=== PATIENT | female | born 2000 | race Caucasian/White ===

== ENCOUNTER 2019-03-01 18:19 | Emergency (ER) | payer SELFPAY ==
--- NOTE | 2019-03-01 18:58 | EDM.PDOC ---
ED HPI GENERAL MEDICAL PROBLEM - General Chief Complaint: Abdominal Pain Stated Complaint: ABDOMINAL PAIN Time Seen by Provider: 03/01/19 18:58 - History of Present Illness INITIAL COMMENTS - FREE TEXT/NARRATIVE: 18-year-old female presents emergency room with abdominal pain. This pain has been going on for a while progressively getting worse she was seen here sometime back and is doing about the same at this point. Apparently the patient had a pelvic ultrasound done over [facility] and according to the patient it showed a ruptured ovarian cyst. The patient is getting around no nausea vomiting diarrhea constipation. She was last seen here a month ago. He just has some discomfort with this no fevers or chills. Right Lower Abdomen Pain Score (Numeric/FACES): 10 - Related Data Allergies Allergy/AdvReac Type Severity Reaction Status Date / Time camphor* [From Vicks Vaporub] Allergy Hives Verified 03/01/19 18:47 [email or web address] Allergy Hives Verified 03/01/19 18:47 [From Vicks Vaporub] menthol [From Vicks Vaporub] Allergy Hives Verified 03/01/19 18:47 petrolatum,white Allergy Hives Verified 03/01/19 18:47 [From Vicks Vaporub] turpentine oil Allergy Hives Verified 03/01/19 18:47 [From Vicks Vaporub] metal Allergy Swelling Uncoded 03/01/19 18:47 Home Meds: Home Meds Escitalopram [Lexapro] 20 mg PO DAILY 03/01/19 [History] Nitrofurantoin Monohyd/M-Cryst [Macrobid 100 mg Capsule] 100 mg PO Q12H #14 capsule 03/01/19 [Rx] Past Medical History HEENT History: Reports: Impaired Vision Psychiatric History: Reports: Anxiety, Depression Other Psychiatric History: can't afford her medications Endocrine/Metabolic History: Reports: Obesity/BMI 30+ - Past Surgical History Female Surgical History: Reports: Other (See Below) Other Female Surgeries/Procedures: ruptured cyst Social & Family History - Family History Oncologic: Reports: Colon, Skin - Tobacco Use Smoking Status *Q: Never Smoker Second Hand Smoke Exposure: No - Caffeine Use Caffeine Use: Reports: Coffee, Energy Drinks, Soda, Tea - Recreational Drug Use Recreational Drug Use: No - Living Situation & Occupation Living situation: Reports: Single, with Significant Other (Emmanuel, his brother) Occupation: Employed ([employer]) ED ROS GENERAL - Review of Systems Review Of Systems: See Below Constitutional: Reports: No Symptoms HEENT: Reports: No Symptoms Respiratory: Reports: No Symptoms Cardiovascular: Reports: No Symptoms Endocrine: Reports: No Symptoms GI/Abdominal: Reports: Abdominal Pain (Lower abdominal discomfort). Denies: Constipation, Diarrhea, Nausea, Vomiting : Reports: No Symptoms, Discharge, Dysuria, Flank Pain, Frequency Neurological: Reports: No Symptoms. Denies: Confusion, Dizziness, Headache ED EXAM, GI/ABD - Physical Exam Exam: See Below Exam Limited By: No Limitations General Appearance: Alert, No Apparent Distress Cardiovascular: Normal Peripheral Pulses, Regular Rate, Rhythm, No Edema, No Gallop, No JVD, No Murmur, No Rub GI/Abdominal Exam: Normal Bowel Sounds, Soft, No Organomegaly, No Distention, No Abnormal Bruit, No Mass, Pelvis Stable, Other (She has some right-sided lower pelvic discomfort no rigidity rebound or guarding) Back Exam: Normal Inspection, CVA Tenderness (R). No: CVA Tenderness (L) Extremities: Normal Inspection, No Pedal Edema Neurological: Alert, Oriented, Normal Cognition Course - Vital Signs Last Recorded V/S: Last Vital Signs Temp 36.2 C 03/01/19 18:43 Pulse 101 H 03/01/19 18:43 Resp 20 03/01/19 18:43 BP 97/73 03/01/19 18:43 Pulse Ox 100 03/01/19 18:43 - Orders/Labs/Meds Orders: Active Orders 24 hr Category Date Time Status CULTURE URINE [RM] Stat Lab 03/01/19 20:50 Received Labs: Laboratory Tests 03/01/19 03/01/19 03/01/19 Range/Units 19:31 19:31 20:50 WBC 8.16 (3.98-10.04) K/mm3 RBC 4.43 (3.98-5.22) M/mm3 Hgb 13.1 (11.2-15.7) gm/L Hct 38.5 (34.1-44.9) % MCV 86.9 (79.4-94.8) fl MCH 29.6 (25.6-32.2) pg MCHC 34.0 (32.2-35.5) g/dl RDW Std Deviation 40.8 (36.4-46.3) fL Plt Count 294 (182-369) K/mm3 MPV 9.5 (9.4-12.3) fl Neutrophils % (Manual) 67 H (40-60) % Band Neutrophils % 0 (0-10) % Lymphocytes % (Manual) 29 (20-40) % Atypical Lymphs % 0 % Monocytes % (Manual) 3 (2-10) % Eosinophils % (Manual) 1 (0.7-5.8) % Basophils % (Manual) 0 L (0.1-1.2) Platelet Estimate Adequate RBC Morph Comment Normal Sodium 138 (136-145) mEq/L Potassium 4.0 (3.5-5.1) mEq/L Chloride 103 (98-107) mEq/L Carbon Dioxide 27 (21-32) mEq/L Anion Gap 12.0 (5-15) BUN 10 (7-18) mg/dL Creatinine 1.0 (0.55-1.02) mg/dL Est Cr Clr Drug Dosing 100.30 mL/min Estimated GFR (MDRD) > 60 (>60) mL/min BUN/Creatinine Ratio 10.0 L (14-18) Glucose 95 (74-106) mg/dL Calcium 9.1 (8.5-10.1) mg/dL Total Bilirubin 0.4 (0.2-1.0) mg/dL AST 19 (15-37) U/L ALT 37 (14-59) U/L Alkaline Phosphatase 53 (46-116) U/L Total Protein 7.4 (6.4-8.2) g/dl Albumin 3.8 (3.4-5.0) g/dl Globulin 3.6 gm/dL Albumin/Globulin Ratio 1.1 (1-2) Urine Color Yellow (Yellow) Urine Appearance Slt cloudy H (Clear) Urine pH 6.0 (5.0-8.0) Ur Specific [place] 1.020 (1.005-1.030) Urine Protein Negative (Negative) Urine Glucose (UA) Negative (Negative) Urine Ketones Negative (Negative) Urine Occult Blood Negative (Negative) Urine Nitrite Negative (Negative) Urine Bilirubin Negative (Negative) Urine Urobilinogen 0.2 (0.2-1.0) Ur Leukocyte Esterase 2+ H (Negative) Urine RBC 0-5 (0-5) /hpf Urine WBC 75-100 H (0-5) /hpf Ur Squamous Epith Cells 5-10 H (0-5) /hpf Urine Bacteria Moderate H (FEW) /hpf Urine Mucus Few (FEW) /hpf Urine HCG, Qual (NEGATIVE) 03/01/19 Range/Units 21:01 WBC (3.98-10.04) K/mm3 RBC (3.98-5.22) M/mm3 Hgb (11.2-15.7) gm/L Hct (34.1-44.9) % MCV (79.4-94.8) fl MCH (25.6-32.2) pg MCHC (32.2-35.5) g/dl RDW Std Deviation (36.4-46.3) fL Plt Count (182-369) K/mm3 MPV (9.4-12.3) fl Neutrophils % (Manual) (40-60) % Band Neutrophils % (0-10) % Lymphocytes % (Manual) (20-40) % Atypical Lymphs % % Monocytes % (Manual) (2-10) % Eosinophils % (Manual) (0.7-5.8) % Basophils % (Manual) (0.1-1.2) Platelet Estimate RBC Morph Comment Sodium (136-145) mEq/L Potassium (3.5-5.1) mEq/L Chloride (98-107) mEq/L Carbon Dioxide (21-32) mEq/L Anion Gap (5-15) BUN (7-18) mg/dL Creatinine (0.55-1.02) mg/dL Est Cr Clr Drug Dosing mL/min Estimated GFR (MDRD) (>60) mL/min BUN/Creatinine Ratio (14-18) Glucose (74-106) mg/dL Calcium (8.5-10.1) mg/dL Total Bilirubin (0.2-1.0) mg/dL AST (15-37) U/L ALT (14-59) U/L Alkaline Phosphatase (46-116) U/L Total Protein (6.4-8.2) g/dl Albumin (3.4-5.0) g/dl Globulin gm/dL Albumin/Globulin Ratio (1-2) Urine Color (Yellow) Urine Appearance (Clear) Urine pH (5.0-8.0) Ur Specific [place] (1.005-1.030) Urine Protein (Negative) Urine Glucose (UA) (Negative) Urine Ketones (Negative) Urine Occult Blood (Negative) Urine Nitrite (Negative) Urine Bilirubin (Negative) Urine Urobilinogen (0.2-1.0) Ur Leukocyte Esterase (Negative) Urine RBC (0-5) /hpf Urine WBC (0-5) /hpf Ur Squamous Epith Cells (0-5) /hpf Urine Bacteria (FEW) /hpf Urine Mucus (FEW) /hpf Urine HCG, Qual Negative (NEGATIVE) - Re-Assessments/Exams Free Text/Narrative Re-Assessment/Exam: 03/01/19 21:31 To get a hold of her pelvic ultrasound she's had a no free fluid she has of 4 cm septated cyst left ovary they've recommended follow-up ultrasound in 8-12 weeks to ensure resolution has occurred. To check some labs on her she's developing a urinary tract infection this is probably more symptomatic than the ovarian cyst is at this point we will start her on Macrobid. Departure - Departure Time of Disposition: 21:32 Disposition: Home, Self-Care 01 Clinical Impression: Urinary tract infection - Discharge Information Prescriptions: Nitrofurantoin Monohyd/M-Cryst [Macrobid 100 mg Capsule] 100 mg PO Q12H #14 capsule Referrals: PCP,None [Primary Care Provider] - Forms: ED Department Discharge Additional Instructions: Return to emergency room if any questions problems or worsening symptoms. Follow-up in the clinic in the next couple days. Take the antibiotic as directed - My Orders Last 24 Hours: My Active Orders 03/01/19 20:50 CULTURE URINE [RM] Stat - Assessment/Plan Last 24 Hours: My Active Orders 03/01/19 20:50 CULTURE URINE [RM] Stat
[2019-03-01] MEDS ORDERED: Nitrofurantoin Monohydrate/Macrocrystalline 100 MG Cap PO ONE (21:34)
== END 2019-03-01 21:48 | disposition home or self-care (01) ==
LOC: JD.ED 18:19
DX: N39.0 Urinary tract infection, site not specified (principal); F41.9 Anxiety disorder, unspecified; F32.9 Major depressive disorder, single episode, unspecified; Z79.899 Other long term (current) drug therapy; Z88.8 Allergy status to other drugs, medicaments and biological substances
CPT/HCPCS: 36415; 80053; 81001; 81025; 85007; 85027; 87086; 87088; 99284; A9270; 99282